=== PATIENT | male | born 1960 | race Hispanic/Latino ===

== ENCOUNTER 2018-11-22 15:35 | Emergency (ER) | payer BC ==
--- NOTE | 2018-11-22 17:57 | RAD REPORT ---
EXAM DESCRIPTION: RAD - Chest Pa And Lat (2 Views) - 11/22/2018 5:10 pm CLINICAL HISTORY: COUGH Chest pain. COMPARISON: No comparisons FINDINGS: The lungs appear hyperexpanded. Rounded opacity is seen projecting posteriorly on the late ral view superimposed on the spine. This may be related to bony sclerosis in the spine or a pulmonary infiltrate or mass. The heart is normal in size. Follow-up CT chest imaging would be recommended for further assessment.
[2018-11-22 18:06] LABS: Absolute Monocytes 1.1 K/uL (0.1-1.3); Absolute Neutrophil 4.3 K/uL (1.8-8.0); Basophils % 0.7 % (0-1.3); Eosinophils % 0.9 % (0-4.4); Hematocrit 44.9 % (39.6-49.0); Lymphocytes % 35.4 % (15.3-44.8); MPV 8.9 fL (7.6-11.3); Monocytes % 12.4 % (3.3-12.3); RBC Red Blood Cell Count 5.03 M/uL (4.33-5.43)
[2018-11-22 18:13] LABS: Protime INR 1.1
[2018-11-22 18:24] LABS: BUN Blood Urea Nitrogen 11 mg/dL (7-18); Bicarbonate 29 mmol/L (21-32); Glucose Level 259 mg/dL (74-106); NT PRO-BNP 25 pg/mL (<125); Potassium 3.8 mmol/L (3.5-5.1); Sodium Level 137 mmol/L (136-145); Troponin (Emerg Dept Use Only) < 0.02 ng/mL (0.0-0.045)
--- NOTE | 2018-11-22 18:40 | RAD REPORT ---
EXAM DESCRIPTION: CT - Thorax Wo Con CLINICAL HISTORY: Chest pain cough, shortness of breath COMPARISON: Chest Pa And Lat (2 Views) dated 11/22/2018 FINDINGS: 19 x 16 mm pulmonary lesion is seen in the left lower lobe posteriorly (image 35/60). The lesion appears at least partially solid with some ground-glass component. Elsewhere, the lungs are cl ear. No pleural thickening or pleural effusion. No pneumothorax. No axillary, mediastinal or hilar adenopathy. No concerning bony finding. Multiple gallstones are seen in the gallbladder. There is a vague low-den sity lesion in the posterior right lobe of the liver measuring 3.3 x 2.7 cm. This is incompletely ass essed on this CT chest study. All CT scans are performed using dose optimization technique as appropriate and may include automated exposure control or mA/KV adjustment according to patient size. IMPRESSION: 19 x 16 mm pulmonary lesion in the left lower lobe with solid and ground-glass component s.Neoplastic and nonneoplastic etiologies are possible and follow-up CT chest in 3 months or PET-CT i s recommended. Subtle hypodense lesion in the posterior right lobe of the liver (3.3 x 2.7 cm). Followup nonemergent MRI liver protocol is recommended. Cholelithiasis.
--- NOTE | 2018-11-22 18:49 | ER ---
Nurse's Notes [facility] Name: Luis Alberto Oliveira Age: 58 yrs Sex: Male : 1960 Arrival Date: 11/22/2018 Time: 15:37 Bed 28 Private MD: Diagnosis: Cough Presentation: 11/22 15:58 Presenting complaint: Patient states: Persistent cough x 2 weeks w/ clear phlegm, also ph reports SOB, denies fever N/V/D or pain. Transition of care: patient was not received from another setting of care. Onset of symptoms was November 22, 2018. Risk Assessment: Do you want to hurt yourself or someone else? Patient reports no desire to harm self or others. Initial Sepsis Screen: Does the patient meet any 2 criteria? No. Patient's initial sepsis screen is negative. Does the patient have a suspected source of infection? No. Patient's initial sepsis screen is negative. Care prior to arrival: None. 15:58 Method Of Arrival: Ambulatory 15:58 Acuity: CATRACHITO 3 ph Triage Assessment: 16:07 General: Appears in no apparent distress. uncomfortable. General: Behavior is calm, rv cooperative. Respiratory: Reports shortness of breath on exertion Onset: The symptoms/episode began/occurred gradually, the patient has mild shortness of breath. Historical: - Allergies: 16:00 No Known Allergies; ph - PMHx: 16:00 Sleep Apnea; Diabetes - IDDM; Hypertension; Hyperlipidemia; Hypothyroidism; ph - Immunization history:: Adult Immunizations up to date. - Social history:: Smoking status: Patient/guardian denies using tobacco. - Ebola Screening: : No symptoms or risks identified at this time. Screenin:06 Abuse screen: Denies threats or abuse. Denies injuries from another. Nutritional rv screening: No deficits noted. Tuberculosis screening: No symptoms or risk factors identified. Fall Risk None identified. Assessment: 16:05 General: Appears in no apparent distress. uncomfortable, Behavior is calm, cooperative. rv Pain: Denies pain. Neuro: Level of Consciousness is awake, alert, obeys commands, Oriented to person, place, time, situation. Cardiovascular: Patient's skin is warm and dry. Rhythm is regular. Respiratory: Airway is patent Respiratory effort is even, Breath sounds are clear bilaterally. GI: No signs and/or symptoms were reported involving the gastrointestinal system. : No signs and/or symptoms were reported regarding the genitourinary system. EENT: No signs and/or symptoms were reported regarding the EENT system. Derm: Skin is intact. Musculoskeletal: No signs and/or symptoms reported regarding the musculoskeletal system. 19:00 Reassessment: Patient appears in no apparent distress at this time. Patient and/or rv family updated on plan of care and expected duration. Pain level reassessed. Patient is alert, oriented x 3, equal unlabored respirations, skin warm/dry/pink. Vital Signs: 15:59 BP 147 / 72; Pulse 90; Resp 24; Temp 98.6; Pulse Ox 98% on R/A; Weight 199.58 kg; ph Height 5 ft. 8 in. (172.72 cm); 16:45 BP 137 / 76; Pulse 85; Resp 18; Pulse Ox 94% ; rv 18:00 BP 102 / 68; Pulse 85; Resp 18; Pulse Ox 97% ; rv 19:26 BP 110 / 81; Pulse 89; Resp 18; Temp 98.2; Pulse Ox 98% ; rv 15:59 Body Mass Index 66.90 (199.58 kg, 172.72 cm) ph ED Course: 15:37 Patient arrived in ED. tw3 15:50 Sean Overton, OCHOA is Primary Nurse. rv 15:53 Maritza Gorman FNP-C is [facility]. kb 15:53 Jose Guadalupe Watson MD is Attending Physician. kb 15:59 Triage completed. ph 16:00 Arm band placed on Patient placed in an exam room, on a stretcher, on pulse oximetry. ph 16:07 Patient has correct armband on for positive identification. Bed in low position. Call rv light in reach. Side rails up X 1. Pulse ox on. NIBP on. 17:05 Chest Pa And Lat (2 Views) XRAY In Process Unspecified. EDMS 17:50 Inserted saline lock: 20 gauge in right antecubital area, using aseptic technique. rv Blood collected. 18:[address] eh 18:22 CT completed. Patient tolerated procedure well. Patient moved back from CT. eh 18:23 CT Chest Wo Con In Process Unspecified. EDMS 19:26 No provider procedures requiring assistance completed. IV discontinued, intact, rv bleeding controlled, No redness/swelling at site. Pressure dressing applied. Administered Medications: No medications were administered Outcome: 18:49 Discharge ordered by . johnathan 19:27 Discharged to home ambulatory. rv 19:27 Condition: good 19:27 Discharge instructions given to patient, Instructed on discharge instructions, follow up and referral plans. medication usage, Demonstrated understanding of instructions, follow-up care, medications, Prescriptions given X 1. 19:27 Patient left the ED. rv Signatures: Dispatcher [employer] EDMaritza Oates, TAX ACCOUNTING ASSISTANT-C TAX ACCOUNTING ASSISTANT-Kadeem Rosa Patricia, RN RN ph Mathieu, Tia tw3 Sean Overton, RN RN rv Corrections: (The following items were deleted from the chart) 17:57 17:55 BP 94 / 61; Pulse 86bpm; Resp 19bpm; Pulse Ox 100%; Temp 99.9F; rv rv
--- NOTE | 2018-11-22 18:49 | EDPHYS ---
Physician Documentation [facility] Name: Luis Alberto Oliveira Age: 58 yrs Sex: Male : 1960 Arrival Date: 11/22/2018 Time: 15:37 Bed 28 Private MD: ED Physician Jose Guadalupe Watson HPI: 11/22 17:32 This 58 yrs old Male presents to ER via Ambulatory with complaints of Cough, kb Shortness Of Breath. 17:32 The patient or guardian reports cough, that is intermittent, described as moderate, kb with no sputum, difficulty breathing. Onset: The symptoms/episode began/occurred 2.5 week(s) ago. Severity of symptoms: At their worst the symptoms were moderate, in the emergency department the symptoms are unchanged. Modifying factors: The symptoms are alleviated by nothing, the symptoms are aggravated by exertion. Associated signs and symptoms: The patient has no apparent associated signs or symptoms. The patient has not experienced similar symptoms in the past. The patient has not recently seen a physician. Pt reports cough for 2.5 weeks and now having dyspnea on exertion. Historical: - Allergies: 16:00 No Known Allergies; ph - PMHx: 16:00 Sleep Apnea; Diabetes - IDDM; Hypertension; Hyperlipidemia; Hypothyroidism; ph - Immunization history:: Adult Immunizations up to date. - Social history:: Smoking status: Patient/guardian denies using tobacco. - Ebola Screening: : No symptoms or risks identified at this time. ROS: 17:31 Constitutional: Negative for fever, chills, and weight loss, ENT: Negative for injury, kb pain, and discharge, Neck: Negative for injury, pain, and swelling, Cardiovascular: Negative for chest pain, palpitations, and edema, Abdomen/GI: Negative for abdominal pain, nausea, vomiting, diarrhea, and constipation, Back: Negative for injury and pain, : Negative for injury, bleeding, discharge, and swelling, MS/Extremity: Negative for injury and deformity, Skin: Negative for injury, rash, and discoloration, Neuro: Negative for headache, weakness, numbness, tingling, and seizure. 17:31 Respiratory: Positive for cough, with no reported sputum, dyspnea on exertion. Exam: 17:32 Constitutional: This is a well developed, well nourished patient who is awake, alert, kb and in no acute distress. Head/Face: Normocephalic, atraumatic. ENT: Nares patent. No nasal discharge, no septal abnormalities noted. Tympanic membranes are normal and external auditory canals are clear. Oropharynx with no redness, swelling, or masses, exudates, or evidence of obstruction, uvula midline. Mucous membranes moist. Neck: Trachea midline, no thyromegaly or masses palpated, and no cervical lymphadenopathy. Supple, full range of motion without nuchal rigidity, or vertebral point tenderness. No Meningismus. Chest/axilla: Normal chest wall appearance and motion. Nontender with no deformity. No lesions are appreciated. Cardiovascular: Regular rate and rhythm with a normal S1 and S2. No gallops, murmurs, or rubs. Normal PMI, no JVD. No pulse deficits. Respiratory: Lungs have equal breath sounds bilaterally, clear to auscultation and percussion. No rales, rhonchi or wheezes noted. No increased work of breathing, no retractions or nasal flaring. Abdomen/GI: Soft, non-tender, with normal bowel sounds. No distension or tympany. No guarding or rebound. No evidence of tenderness throughout. Skin: Warm, dry with normal turgor. Normal color with no rashes, no lesions, and no evidence of cellulitis. MS/ Extremity: Pulses equal, no cyanosis. Neurovascular intact. Full, normal range of motion. Neuro: Awake and alert, GCS 15, oriented to person, place, time, and situation. Cranial nerves II-XII grossly intact. Motor strength 5/5 in all extremities. Sensory grossly intact. Cerebellar exam normal. Normal gait. 18:37 ECG was reviewed by the Attending Physician. kb Vital Signs: 15:59 BP 147 / 72; Pulse 90; Resp 24; Temp 98.6; Pulse Ox 98% on R/A; Weight 199.58 kg; ph Height 5 ft. 8 in. (172.72 cm); 16:45 BP 137 / 76; Pulse 85; Resp 18; Pulse Ox 94% ; rv 18:00 BP 102 / 68; Pulse 85; Resp 18; Pulse Ox 97% ; rv 19:26 BP 110 / 81; Pulse 89; Resp 18; Temp 98.2; Pulse Ox 98% ; rv 15:59 Body Mass Index 66.90 (199.58 kg, 172.72 cm) ph MDM: 15:53 Patient medically screened. kb 17:30 Data reviewed: vital signs, nurses notes. Data interpreted: Pulse oximetry: on room air kb is 98 %. Interpretation: normal. ED course: Discussed pt with Dr Watson. Labs and EKG ordered.. 18:03 ED course: Radiologist recommended CT chest for further evaluation. . kb 18:38 Counseling: I had a detailed discussion with the patient and/or guardian regarding: the historical points, exam findings, and any diagnostic results supporting the discharge/admit diagnosis, lab results, radiology results, the need for outpatient follow up, a family practitioner, to return to the emergency department if symptoms worsen or persist or if there are any questions or concerns that arise at home. 18:48 Special discussion: I discussed with the patient the need to follow-up with the PCP/specialist for the noted incidental finding on X-ray/CT scanning. ED course: Pt educated on findings and need for follow up with pulmonology/PCP for repeat CT in 3 months. VErbal understanding received. . 11/22 17:29 Order name: Troponin (emerg Dept Use Only) 11/22 17:29 Order name: Magnesium; Complete Time: 18:27 kb 11/22 17:29 Order name: Basic Metabolic Panel 11/22 17:29 Order name: CBC with Diff; Complete Time: 18:19 kb 11/22 17:29 Order name: NT PRO-BNP; Complete Time: 18:27 kb 11/22 17:29 Order name: PT-INR; Complete Time: 18:19 kb 11/22 15:57 Order name: Chest Pa And Lat (2 Views) XRAY; Complete Time: 18:01 kb 11/22 17:29 Order name: EKG; Complete Time: 17:29 kb 11/22 17:29 Order name: EKG - Nurse/Tech; Complete Time: 17:53 kb 11/22 17:29 Order name: Cardiac monitoring; Complete Time: 17:54 kb 11/22 17:29 Order name: IV Saline Lock; Complete Time: 17:54 kb 11/22 17:30 Order name: Troponin (Emerg Dept Use Only); Complete Time: 18:27 EDAR 11/22 17:30 Order name: Basic Metabolic Panel; Complete Time: 18:27 EDAR 11/22 18:02 Order name: CT Chest Wo Con; Complete Time: 18:45 kb 11/22 17:29 Order name: Labs collected and sent; Complete Time: 17:54 kb 11/22 17:29 Order name: O2 Per Protocol; Complete Time: 17:53 kb 11/22 17:29 Order name: O2 Sat Monitoring; Complete Time: 17:53 kb EC:37 Rate is 88 beats/min. Rhythm is regular. Left axis deviation noted. OR interval is kb normal at 148 msec. QRS interval is normal at 106 msec. QT interval is normal at 362 msec. Interpreted by me. Reviewed by me. Administered Medications: No medications were administered Disposition: 11/22/18 18:49 Discharged to Home. Impression: Cough. - Condition is Stable. - Discharge Instructions: Cough, Adult, [id number]. - Prescriptions for Tessalon Perles 100 mg Oral Capsule - take 1 capsule by ORAL route every 8 hours As needed; 15 capsule. - Medication Reconciliation Form, Thank You Letter, Antibiotic Education, Prescription Opioid Use form. - Follow up: Emergency Department; When: As needed; Reason: Worsening of condition. Follow up: Private Physician; When: 2 - 3 days; Reason: Recheck today's complaints, Continuance of care, Re-evaluation by your physician. Addendum: 11/26/2018 22:48 Co-signature as Attending Physician, Jose Guadalupe Watson MD. g s Signatures: Dispatcher [employer] EDMS Maritza Gorman, SAND MILL OPERATOR-C SAND MILL OPERATOR-Ckb Yudith Harris RN RN ph Starr, Gregory, MD MD gs Vicente, Ronaldo RN RN rv Corrections: (The following items were deleted from the chart) 11/22 19:27 18:49 11/22/2018 18:49 Discharged to Home. Impression: Cough. Condition is Stable. rv Forms are Medication Reconciliation Form, Thank You Letter, Antibiotic Education, Prescription Opioid Use. Follow up: Emergency Department; When: As needed; Reason: Worsening of condition. Follow up: Private Physician; When: 2 - 3 days; Reason: Recheck today's complaints, Continuance of care, Re-evaluation by your physician. kb
[2018-11-22 19:43] VITALS: BP 110/81; TEMP 98.2; O2SAT 98
--- NOTE | 2018-11-23 12:52 | EKG ---
Test Date: 2018-11-22 Test Time: 17:44:44 Ticket Attendant: SAMANTHAT MEASUREMENT RESULTS: Intervals: Rate: 88 NC: 148 QRSD: 106 QT: 362 QTc: 438 Allen: P: 48 NC: 148 QRS: -57 T: 24 INTERPRETIVE STATEMENTS: Normal sinus rhythm Left axis deviation Pulmonary disease pattern Minimal voltage criteria for LVH, may be normal variant Abnormal ECG No previous ECG available for comparison Electronically Signed On 11-23-18 12:50:49 CDT by Kelvin Angel
== END 2018-11-22 19:27 | disposition home or self-care (01) ==
LOC: ER 15:35
DX: R05 Cough (principal); I10 Essential (primary) hypertension
CPT/HCPCS: 36415; 71046; 71250; 80048; 83735; 83880; 84484; 85025; 85610; 93005; 99284

== ENCOUNTER 2019-02-22 18:31 | Observation (INO) | payer BC ==
[2019-02-22] MEDS ORDERED: NA CHLORIDE 0.9% 2,000 ML ONE (19:48)
[2019-02-22] MEDS ORDERED: AZITHROMYCIN 500 MG INJ IVPB ONE (19:48)
[2019-02-22] MEDS ORDERED: ACETAMINOPHEN 500 MG TAB ONE (19:48)
[2019-02-22] MEDS ORDERED: CEFTRIAXONE/SWI 1gm 2 GM/20 ML SYR ONE (19:48)
[2019-02-22] MEDS ORDERED: NA CHLORIDE 0.9% 250 ML ONE (19:49)
[2019-02-22 20:20] LABS: MPV 7.8 fL (7.6-11.3)
[2019-02-22 20:25] LABS: Absolute Lymphocytes (CBC) 3.5 K/uL (0.7-4.9); Basophils % 0.3 % (0-1.3); Hematocrit 35.1 % (39.6-49.0); Lymphocytes % 30.1 % (15.3-44.8); Protime INR 1.23
--- NOTE | 2019-02-22 20:33 | ER ---
Nurse's Notes [facility] Name: Luis Alberto Oliveira Age: 58 yrs Sex: Male : 1960 Arrival Date: 02/22/2019 Time: 18:34 Bed 13 Private MD: Antoni Galvan R Diagnosis: Fever, unspecified;Dyspnea;Dyspnea, unspecified;Obesity, unspecified;Lymphedema, not elsewhere classified;Hypokalemia;Tachycardia, unspecified;Hypoxemia;Type 1 diabetes mellitus Presentation: 02/22 18:50 Presenting complaint: Patient states: "I've been short of breath for a while but today aa5 I started running a fever". Pt also c/o RUQ pain that began 2 weeks ago. Reports cough and congestion. Transition of care: patient was not received from another setting of care. Onset of symptoms was 2018. Risk Assessment: Do you want to hurt yourself or someone else? Patient reports no desire to harm self or others. Initial Sepsis Screen: Does the patient meet any 2 criteria? RR > 20 per min. HR > 90 bpm. Yes Does the patient have a suspected source of infection? Yes: Other: cough/SOB. Care prior to arrival: None. 18:50 Method Of Arrival: Ambulatory aa5 18:50 Acuity: CATRACHITO 3 aa5 Triage Assessment: 18:54 General: Appears in no apparent distress. uncomfortable, ill, Behavior is cooperative, bp appropriate for age, anxious. Pain: Complains of pain in right upper quadrant. EENT: No deficits noted. Neuro: No deficits noted. Cardiovascular: No deficits noted. Respiratory: Reports shortness of breath Onset: The symptoms/episode began/occurred 2 DAYS, the patient has mild shortness of breath. GI: Reports upper abdominal pain. : No signs and/or symptoms were reported regarding the genitourinary system. Derm: No deficits noted. Musculoskeletal: No deficits noted. Historical: - Allergies: 18:52 No Known Allergies; aa5 - PMHx: 18:52 Diabetes - IDDM; Hyperlipidemia; Hypertension; Hypothyroidism; Sleep Apnea; aa5 - PSHx: 18:52 Craniotomy; aa5 - Immunization history:: Flu vaccine is up to date. - Social history:: Smoking status: Patient/guardian denies using tobacco. - Ebola Screening: : No symptoms or risks identified at this time. - Family history:: not pertinent. Screenin:57 Abuse screen: Denies threats or abuse. Denies injuries from another. Nutritional bp screening: No deficits noted. Tuberculosis screening: No symptoms or risk factors identified. Fall Risk None identified. Assessment: 18:56 General: SEE TRIAGE NOTE. Cardiovascular: Rhythm is sinus tachycardia. Respiratory: bp Airway is patent Respiratory effort is even, unlabored, Breath sounds are clear bilaterally. 19:03 General: Appears in no apparent distress. uncomfortable, well groomed, well nourished, jd3 Behavior is calm, cooperative, appropriate for age. Pain: Complains of pain in abdomen Quality of pain is described as crampy, dull. Neuro: Level of Consciousness is awake, alert, obeys commands, Oriented to person, place, time, situation. Cardiovascular: Heart tones S1 S2 present Capillary refill < 3 seconds Patient's skin is warm and dry. Respiratory: Reports shortness of breath Airway is patent Respiratory effort is even, unlabored, Respiratory pattern is regular, symmetrical, Breath sounds are clear bilaterally. Denies cough, labored breathing. GI: Abdomen is round non-distended, obese, Bowel sounds present X 4 quads. Abd is soft and non tender X 4 quads. Reports upper abdominal pain, Patient currently denies diarrhea, nausea, vomiting. : No signs and/or symptoms were reported regarding the genitourinary system. EENT: No signs and/or symptoms were reported regarding the EENT system. Derm: Skin is intact, Skin is dry, Skin is normal, Skin temperature is warm. Musculoskeletal: Circulation, motion, and sensation intact. Range of motion: intact in all extremities. 20:22 Reassessment: Patient appears in no apparent distress at this time. No changes from jd3 previously documented assessment. Patient and/or family updated on plan of care and expected duration. Pain level reassessed. Patient is alert, oriented x 3, equal unlabored respirations, skin warm/dry/pink. 21:13 Reassessment: Patient appears in no apparent distress at this time. No changes from jd3 previously documented assessment. Patient and/or family updated on plan of care and expected duration. Pain level reassessed. Patient is alert, oriented x 3, equal unlabored respirations, skin warm/dry/pink. awaiting admission orders. 22:21 Reassessment: Patient appears in no apparent distress at this time. Patient and/or jd3 family updated on plan of care and expected duration. Pain level reassessed. Patient is alert, oriented x 3, equal unlabored respirations, skin warm/dry/pink. resting in bed with even and unlabored respirations. admitting doctor at bedside. 23:27 Reassessment: Patient appears in no apparent distress at this time. Patient and/or jd3 family updated on plan of care and expected duration. Pain level reassessed. Patient is alert, oriented x 3, equal unlabored respirations, skin warm/dry/pink. awaiting admission orders. 02/23 00:11 Reassessment: Patient appears in no apparent distress at this time. No changes from jd3 previously documented assessment. Patient and/or family updated on plan of care and expected duration. Pain level reassessed. Patient is alert, oriented x 3, equal unlabored respirations, skin warm/dry/pink. Patient states feeling better. 01:18 Reassessment: Patient appears in no apparent distress at this time. No changes from jd3 previously documented assessment. Patient and/or family updated on plan of care and expected duration. Pain level reassessed. Patient is alert, oriented x 3, equal unlabored respirations, skin warm/dry/pink. Vital Signs: 02/22 18:52 BP 109 / 59; Pulse 110; Resp 22 S; Temp 100.3(O); Pulse Ox 96% on R/A; Pain 0/10; aa5 18:54 Weight 197.04 kg (M); aa5 20:13 BP 126 / 65; Pulse 94; Resp 24 S; Pulse Ox 97% on R/A; jd3 21:13 BP 116 / 58; Pulse 93; Resp 19 S; Pulse Ox 97% on R/A; jd3 22:22 BP 125 / 68; Pulse 91; Resp 18 S; Pulse Ox 96% on R/A; jd3 23:27 BP 115 / 62; Pulse 72; Resp 26 S; Temp 98.7(O); Pulse Ox 96% on R/A; jd3 02/23 00:11 BP 135 / 73; Pulse 69; Resp 19 S; Pulse Ox 94% on R/A; jd3 01:17 BP 136 / 70; Pulse 70; Resp 22 S; Pulse Ox 97% on R/A; jd3 ED Course: 02/22 18:34 Patient arrived in ED. mr 18:35 Antoni Galvan MD is Private Physician. mr 18:50 Arm band placed on. aa5 18:51 Triage completed. aa5 18:54 Juan Manuel Dolan, RN is Primary Nurse. bp 18:57 Patient has correct armband on for positive identification. Bed in low position. Call bp light in reach. Side rails up X2. 19:06 Primary Nurse role handed off by Juan Manuel Dolan, RN jd3 19:06 Jh Shay, OCHOA is Primary Nurse. jd3 19:17 Michael Wolf MD is Attending Physician. marleni 20:14 Inserted saline lock: 20 gauge in right antecubital area, using aseptic technique. oe Blood collected. 20:23 Chest Pa And Lat (2 Views) XRAY In Process Unspecified. EDMS 20:30 Rui Wilkins DO is Hospitalizing Provider. marleni 20:43 US Extremity Venous W Compression Kayden In Process Unspecified. EDMS 21:[address] via stretcher. sj 21:12 CT completed. Patient tolerated procedure well. Patient moved back from CT. sj 21:28 CT Chest For PE Angio In Process Unspecified. EDMS 02/23 00:51 No provider procedures requiring assistance completed. Patient admitted, IV remains in ak1 place. Administered Medications: Discontinued: NS 0.9% 1000 ml IV at 125 ml/hr continuous 02/22 19:54 Drug: Tylenol 1000 mg Route: PO; jd3 20:50 Follow up: Response: No adverse reaction jd3 20:11 Drug: NS 0.9% 1000 ml Route: IV; Rate: 1 bolus; Site: right antecubital; jd3 23:36 Follow up: Response: No adverse reaction; IV Status: Completed infusion; IV Intake: jd3 1000ml 20:12 Drug: NS 0.9% 1000 ml Route: IV; Rate: 125 ml/hr; Site: right antecubital; jd3 21:50 Follow up: Response: No adverse reaction; IV Status: Order to discontinue infusion jd3 20:15 Drug: Rocephin 2 grams Route: IV; Rate: per protocol; Site: right antecubital; jd3 20:25 Follow up: Response: No adverse reaction; IV Intake: 20ml jd3 20:25 Follow up: Response: No adverse reaction; IV Status: Completed infusion; IV Intake: [id number] 20:50 Drug: Zithromax 500 mg Route: IVPB; Infused Over: 1 hrs; Site: right antecubital; jd3 23:36 Follow up: Response: No adverse reaction; IV Status: Completed infusion; IV Intake: jd3 250ml 21:49 Drug: Potassium Effervescent Tablet 50 mEq Route: PO; jd3 23:37 Follow up: Response: No adverse reaction jd3 21:51 Drug: NS 0.9% with KCl 20 mEq/L 1000 ml Route: IV; Rate: 125 ml/hr; Site: right jd3 antecubital; 02/23 00:46 Follow up: IV Status: Infusion continued upon admission ak1 Intake: 02/22 20:25 IV: 20ml; Total: 20ml. jd3 20:25 IV: 20ml; Total: 40ml. jd3 23:36 IV: 1000ml; Total: 1040ml. jd3 23:36 IV: 250ml; Total: 1290ml. jd3 Outcome: 20:31 Decision to Hospitalize by Provider. marleni 02/23 00:51 Admitted to Med/surg accompanied by tech, via stretcher, room 422, with chart, Report ak1 called to shaina Condition: good Instructed on the need for admit. 01:29 Patient left the ED. jd3 Signatures: Dispatcher [employer] EDMS Michael Wolf MD MD cha Rivera, Mary mr Nguyen SerenityRadha Rosen RN RN jr5 Silvia London RN RN ak1 Rian Mckeon Jonathon, RN RN jd3 Juan Manuel Dolan, OCHOA RN bp Corrections: (The following items were deleted from the chart) 02/22 21:16 21:13 BP 116 / 58; Pulse 54bpm; Resp 19bpm; Spontaneous; Pulse Ox 97% RA; jd3 jd3
--- NOTE | 2019-02-22 20:33 | EDPHYS ---
Physician Documentation [facility] Name: Luis Alberto Oliveira Age: 58 yrs Sex: Male : 1960 Arrival Date: 02/22/2019 Time: 18:34 Bed 13 Private MD: Antoni Galvan R ED Physician Michael Wolf HPI: 02/22 19:42 This 58 yrs old Male presents to ER via Ambulatory with complaints of Fever, marleni Shortness Of Breath. 19:42 The patient reports fever, that was measured at 100 degrees Fahrenheit. Onset: The marleni symptoms/episode began/occurred 1 week(s) ago. Modifying factors: there are no obvious modifying factors. 19:43 Associated signs and symptoms: Pertinent positives: chills, cough, runny nose, sinus marleni congestion, shortness of breath. Severity of symptoms: At their worst the symptoms were moderate in the emergency department the symptoms are unchanged. The patient has experienced similar episodes in the past, a few times. Historical: - Allergies: 18:52 No Known Allergies; aa5 - PMHx: 18:52 Diabetes - IDDM; Hyperlipidemia; Hypertension; Hypothyroidism; Sleep Apnea; aa5 - PSHx: 18:52 Craniotomy; aa5 - Immunization history:: Flu vaccine is up to date. - Social history:: Smoking status: Patient/guardian denies using tobacco. - Ebola Screening: : No symptoms or risks identified at this time. - Family history:: not pertinent. ROS: 19:43 Eyes: Negative for injury, pain, redness, and discharge, ENT: Negative for injury, marleni pain, and discharge, Neck: Negative for injury, pain, and swelling, Abdomen/GI: Negative for abdominal pain, nausea, vomiting, diarrhea, and constipation, Back: Negative for injury and pain, : Negative for injury, bleeding, discharge, and swelling, Skin: Negative for injury, rash, and discoloration, Neuro: Negative for headache, weakness, numbness, tingling, and seizure, Psych: Negative for depression, anxiety, suicide ideation, homicidal ideation, and hallucinations, Allergy/Immunology: Negative for hives, rash, and allergies, Endocrine: Negative for neck swelling, polydipsia, polyuria, polyphagia, and marked weight changes, Hematologic/Lymphatic: Negative for swollen nodes, abnormal bleeding, and unusual bruising. 19:43 Cardiovascular: Positive for palpitations. 19:43 Respiratory: Positive for cough, shortness of breath. 19:43 MS/extremity: Positive for swelling, tenderness. Exam: 19:45 Head/Face: Normocephalic, atraumatic. Eyes: Pupils equal round and reactive to light, marleni extra-ocular motions intact. Lids and lashes normal. Conjunctiva and sclera are non-icteric and not injected. Cornea within normal limits. Periorbital areas with no swelling, redness, or edema. ENT: Nares patent. No nasal discharge, no septal abnormalities noted. Tympanic membranes are normal and external auditory canals are clear. Oropharynx with no redness, swelling, or masses, exudates, or evidence of obstruction, uvula midline. Mucous membranes moist. Neck: Trachea midline, no thyromegaly or masses palpated, and no cervical lymphadenopathy. Supple, full range of motion without nuchal rigidity, or vertebral point tenderness. No Meningismus. Chest/axilla: Normal chest wall appearance and motion. Nontender with no deformity. No lesions are appreciated. Abdomen/GI: Soft, non-tender, with normal bowel sounds. No distension or tympany. No guarding or rebound. No evidence of tenderness throughout. Back: No spinal tenderness. No costovertebral tenderness. Full range of motion. Male : Normal genitalia with no discharge or lesions. Skin: Warm, dry with normal turgor. Normal color with no rashes, no lesions, and no evidence of cellulitis. Neuro: Awake and alert, GCS 15, oriented to person, place, time, and situation. Cranial nerves II-XII grossly intact. Motor strength 5/5 in all extremities. Sensory grossly intact. Cerebellar exam normal. Normal gait. Psych: Awake, alert, with orientation to person, place and time. Behavior, mood, and affect are within normal limits. 19:45 Constitutional: The patient appears febrile. 19:45 Cardiovascular: Rate: tachycardic, Rhythm: regular, Pulses: Pulses are 4+ in bilateral radial, brachial, femoral, popliteal, posterior tibial and and dorsalis pedis arteries.. Heart sounds: normal, Edema: 2+ edema to level of left midcalf and right midcalf, JVD: is not appreciated. Vital Signs: 18:52 BP 109 / 59; Pulse 110; Resp 22 S; Temp 100.3(O); Pulse Ox 96% on R/A; Pain 0/10; aa5 18:54 Weight 197.04 kg (M); aa5 20:13 BP 126 / 65; Pulse 94; Resp 24 S; Pulse Ox 97% on R/A; jd3 21:13 BP 116 / 58; Pulse 93; Resp 19 S; Pulse Ox 97% on R/A; jd3 22:22 BP 125 / 68; Pulse 91; Resp 18 S; Pulse Ox 96% on R/A; jd3 23:27 BP 115 / 62; Pulse 72; Resp 26 S; Temp 98.7(O); Pulse Ox 96% on R/A; jd3 08 00:11 BP 135 / 73; Pulse 69; Resp 19 S; Pulse Ox 94% on R/A; jd3 01:17 BP 136 / 70; Pulse 70; Resp 22 S; Pulse Ox 97% on R/A; jd3 MDM: 02/22 19:17 Patient medically screened. [facility] 19:45 Data reviewed: vital signs, nurses notes, lab test result(s), EKG, radiologic studies, marleni doppler, plain films. 02/22 19:42 Order name: Basic Metabolic Panel [facility] 02/22 19:42 Order name: CBC with Diff [facility] 02/22 19:42 Order name: LFT's; Complete Time: 21:51 [facility] 02/22 19:42 Order name: Magnesium; Complete Time: 21:51 [facility] 02/22 19:42 Order name: NT PRO-BNP; Complete Time: 21:51 [facility] 02/22 19:42 Order name: PT-INR; Complete Time: 21:32 [facility] 02/22 19:42 Order name: Troponin (emerg Dept Use Only); Complete Time: 21:51 [facility] 02/22 19:42 Order name: Blood Culture Adult (2) [facility] 02/22 19:42 Order name: Procalcitonin; Complete Time: 21:32 [facility] 02/22 19:42 Order name: Lactate; Complete Time: 21:32 [facility] 02/22 19:42 Order name: Flu; Complete Time: 21:32 [facility] 02/22 19:42 Order name: ABG; Complete Time: 23:14 [facility] 02/22 19:44 Order name: Basic Metabolic Panel; Complete Time: 21:51 EDMS 08/19 19:44 Order name: CBC with Automated Diff; Complete Time: 21:32 [facility]PA 02/22 19:51 Order name: Lipase; Complete Time: 21:51 [facility] 02/22 20:37 Order name: Urine Microscopic Only [facility] 02/22 20:37 Order name: Urine Culture [facility] 02/22 21:39 Order name: Phosphorus; Complete Time: 21:51 EDMS 02/23 01:20 Order name: ABG Arterial Blood Gas [facility] 02/23 01:21 Order name: NT PRO-BNP EDMS 02/23 01:21 Order name: Thyroid Stimulating Hormone EDMS 02/23 01:21 Order name: Basic Metabolic Panel [facility]PA 02/23 01:21 Order name: Basic Metabolic Panel [facility] 02/23 01:21 Order name: CBC with Automated Diff EDMS 02/23 01:21 Order name: CBC with Automated Diff EDMS 02/23 01:21 Order name: Lipid Profile [facility] 02/23 01:21 Order name: Lipid Profile [facility] 02/23 01:21 Order name: Troponin I [facility] 02/22 19:42 Order name: EKG; Complete Time: 19:44 [facility] 02/22 19:42 Order name: Cardiac monitoring; Complete Time: 20:12 [facility] 02/22 19:42 Order name: EKG - Nurse/Tech; Complete Time: 20:12 [facility] 02/22 19:42 Order name: IV Saline Lock; Complete Time: 20:12 [facility] 02/22 19:42 Order name: Labs collected and sent; Complete Time: 20:12 [facility] 02/22 19:42 Order name: O2 Per Protocol; Complete Time: 20:12 [facility] 02/22 19:42 Order name: O2 Sat Monitoring; Complete Time: 20:13 [facility] 02/22 19:42 Order name: Chest Pa And Lat (2 Views) XRAY; Complete Time: 21:32 [facility] 02/22 19:42 Order name: US Extremity Venous W Compression Kayden; Complete Time: 21:32 [facility] 02/22 20:32 Order name: CT Chest For PE Angio [facility] 02/22 20:37 Order name: Urine Dipstick-Ancillary (obtain specimen); Complete Time: 01:27 [facility] 02/23 01:22 Order name: Troponin I [facility] 02/23 01:22 Order name: Troponin I [facility] 02/23 01:22 Order name: Troponin I EDMS 02/23 01:27 Order name: Urine Dipstick--Ancillary (enter results) cm6 Administered Medications: Discontinued: NS 0.9% 1000 ml IV at 125 ml/hr continuous 19:54 Drug: Tylenol 1000 mg Route: PO; jd3 20:50 Follow up: Response: No adverse reaction jd3 20:11 Drug: NS 0.9% 1000 ml Route: IV; Rate: 1 bolus; Site: right antecubital; jd3 23:36 Follow up: Response: No adverse reaction; IV Status: Completed infusion; IV Intake: jd3 1000ml 20:12 Drug: NS 0.9% 1000 ml Route: IV; Rate: 125 ml/hr; Site: right antecubital; jd3 21:50 Follow up: Response: No adverse reaction; IV Status: Order to discontinue infusion jd3 20:15 Drug: Rocephin 2 grams Route: IV; Rate: per protocol; Site: right antecubital; jd3 20:25 Follow up: Response: No adverse reaction; IV Intake: 20ml jd3 20:25 Follow up: Response: No adverse reaction; IV Status: Completed infusion; IV Intake: [id number] 20:50 Drug: Zithromax 500 mg Route: IVPB; Infused Over: 1 hrs; Site: right antecubital; jd3 23:36 Follow up: Response: No adverse reaction; IV Status: Completed infusion; IV Intake: jd3 250ml 21:49 Drug: Potassium Effervescent Tablet 50 mEq Route: PO; jd3 23:37 Follow up: Response: No adverse reaction jd3 21:51 Drug: NS 0.9% with KCl 20 mEq/L 1000 ml Route: IV; Rate: 125 ml/hr; Site: right [facility] antecubital; 02/23 00:46 Follow up: IV Status: Infusion continued upon admission ak1 Disposition: 02/22/19 20:31 Hospitalization ordered by Rui Wilkins for Inpatient Admission. Preliminary diagnosis are Fever, unspecified, Dyspnea, Dyspnea, unspecified, Obesity, unspecified, Lymphedema, not elsewhere classified, Hypokalemia, Tachycardia, unspecified, Hypoxemia, Type 1 diabetes mellitus. - Bed requested for Telemetry/MedSurg (Inpatient). - Status is Inpatient Admission. jd3 - Condition is Stable. - Problem is new. - Symptoms have improved. UTI on Admission? No Signatures: Dispatcher [employer] [facility] Michael Wolf MD MD cha Calderon, Audri, RN RN jr5 Martha Mcgrath mt, Jonathon, RN RN jd3 Surya, Silvia RN ak1 Corrections: (The following items were deleted from the chart) 02/22 19:51 19:44 LIPASE+C.LAB.BRZ ordered. [facility] 20:23 19:44 Chest Single View+RAD.RAD.BRZ ordered. [facility] 21:34 20:31 Hospitalization Ordered by Rui Wilkins DO for Inpatient Admission. Preliminary marleni diagnosis is Fever, unspecified; Dyspnea; Dyspnea, unspecified; Obesity, unspecified; Lymphedema, not elsewhere classified. Bed requested for Telemetry/MedSurg (Inpatient). Status is Inpatient Admission. Condition is Stable. Problem is new. Symptoms have improved. UTI on Admission? No. marleni 21:34 21:34 02/22/2019 20:31 Hospitalization Ordered by RuiZain EASON for Inpatient marleni Admission. Preliminary diagnosis is Fever, unspecified; Dyspnea; Dyspnea, unspecified; Obesity, unspecified; Lymphedema, not elsewhere classified; Hypokalemia. Bed requested for Telemetry/MedSurg (Inpatient). Status is Inpatient Admission. Condition is Stable. Problem is new. Symptoms have improved. UTI on Admission? No. marleni 21:39 21:34 PHOSPHORUS+C.LAB.BRZ ordered. [facility] 21:52 21:34 02/22/2019 20:31 Hospitalization Ordered by Rui Claudette EASON for Inpatient marleni Admission. Preliminary diagnosis is Fever, unspecified; Dyspnea; Dyspnea, unspecified; Obesity, unspecified; Lymphedema, not elsewhere classified; Hypokalemia; Tachycardia, unspecified. Bed requested for Telemetry/MedSurg (Inpatient). Status is Inpatient Admission. Condition is Stable. Problem is new. Symptoms have improved. UTI on Admission? No. marleni 23:16 21:52 02/22/2019 20:31 Hospitalization Ordered by RuiZain EASON for Inpatient marleni Admission. Preliminary diagnosis is Fever, unspecified; Dyspnea; Dyspnea, unspecified; Obesity, unspecified; Lymphedema, not elsewhere classified; Hypokalemia; Tachycardia, unspecified; Hypoxemia. Bed requested for Telemetry/MedSurg (Inpatient). Status is Inpatient Admission. Condition is Stable. Problem is new. Symptoms have improved. UTI on Admission? No. marleni 02/23 00:38 02/22 23:16 02/22/2019 20:31 Hospitalization Ordered by Rui Wilkins DO for Inpatient mt Admission. Preliminary diagnosis is Fever, unspecified; Dyspnea; Dyspnea, unspecified; Obesity, unspecified; Lymphedema, not elsewhere classified; Hypokalemia; Tachycardia, unspecified; Hypoxemia; Type 1 diabetes mellitus. Bed requested for Telemetry/MedSurg (Inpatient). Status is Inpatient Admission. Condition is Stable. Problem is new. Symptoms have improved. UTI on Admission? No. marleni 02/23 01:29 00:38 02/22/2019 20:31 Hospitalization Ordered by Rui Wilkins DO for Inpatient jd3 Admission. Preliminary diagnosis is Fever, unspecified; Dyspnea; Dyspnea, unspecified; Obesity, unspecified; Lymphedema, not elsewhere classified; Hypokalemia; Tachycardia, unspecified; Hypoxemia; Type 1 diabetes mellitus. Bed requested for Telemetry/MedSurg (Inpatient). Status is Inpatient Admission. Condition is Stable. Problem is new. Symptoms have improved. UTI on Admission? No. mt
--- NOTE | 2019-02-22 20:36 | RAD REPORT ---
EXAM DESCRIPTION: RAD - Chest Pa And Lat (2 Views) - 02/22/2019 8:23 pm CLINICAL HISTORY: COUGH Chest pain. COMPARISON: Chest Pa And Lat (2 Views) dated 11/22/2018 FINDINGS: Linear subsegmental atelectasis is present in the right lung base. The lungs are otherwise clear. The heart is normal in size. No displaced fractures. IMPRESSION: Linear atelectasis in the right lung base.
[2019-02-22 20:43] LABS: ALT/SGPT 34 U/L (12-78); AST/SGOT 89 U/L (15-37); Albumin 2.6 g/dL (3.4-5.0); Alkaline Phosphatase 171 U/L (45-117); BUN Blood Urea Nitrogen 11 mg/dL (7-18); Bicarbonate 28 mmol/L (21-32); Bilirubin Direct 0.2 mg/dL (0-0.2); Bilirubin Total 0.6 mg/dL (0.2-1.0); Glucose Level 219 mg/dL (74-106); Lipase 95 U/L (73-393); Magnesium 1.9 mg/dL (1.8-2.4); NT PRO-BNP 93 pg/mL (<125); Protein, Total 7.1 g/dL (6.4-8.2); Sodium Level 139 mmol/L (136-145); Troponin (Emerg Dept Use Only) < 0.02 ng/mL (0.0-0.045)
--- NOTE | 2019-02-22 20:52 | RAD REPORT ---
EXAM DESCRIPTION: US - Extrem Venous W Compress Kayden - 02/22/2019 8:41 pm CLINICAL HISTORY: PAIN Bilateral leg edema and swelling. COMPARISON: <Comparisons> TECHNIQUE: Real-time sonographic interrogation of the left and right lower extremity deep venous sys tems was performed. FINDINGS: Normal compressibility, flow augmentation, phasic flow and spontaneous flow is identified in both the left and right lower extremity deep venous systems. IMPRESSION: No sonographic evidence of left or right lower extremity deep venous thrombosis.
[2019-02-22] MEDS ORDERED: POTASSIUM 25 MEQ EFFERV TAB ONE (21:41)
[2019-02-22] MEDS ORDERED: NS KCL 20MEQ 1,000 ML IV ONE (21:41)
[2019-02-22 21:43] LABS: Arterial Blood Carboxyhemoglob 1.8 % (0-1.5); Blood Gas Oxyhemoglobin 90.3 % (94-97); Blood O2 Saturation 92.2 % (92-98.5)
[2019-02-23] MEDS ORDERED: ACETAMINOPHEN 500 MG TAB PO PRN (00:20)
[2019-02-23] MEDS ORDERED: ALBUTEROL 2.5 MG/3 ML NEB SOL NEB PRN (00:20)
--- NOTE | 2019-02-23 00:58 | P.HP ---
Certification for Inpatient With expected LOS: <2 Midnights Patient will require the following post-hospital care: None Practitioner: I am a practitioner with admitting privileges, knowledge of patient current condition, hospital course, and medical plan of care. Services: Services provided to patient in accordance with Admission requirements found in Title 42 Section 412.3 of the Code of Federal Regulations Patient History Date of Service: 02/23/19 Reason for admission: Shortness of breath History of Present Illness: 58-year-old morbidly obese male with a history of diabetes mellitus type 2, obstructive sleep apnea, bilateral lower extremity lymphedema, hypertension presents to the emergency department with a complaint of shortness of breath of 2 days duration. Patient also reports fever and chills of onset this morning. He reports his symptoms were preceded by a upper respiratory symptoms including nasal congestion and runny nose. He reports cough but no wheeze. He states that he has been compliant with his CPAP. In the ED, mild leukocytosis noted, patient noted to be afebrile, chest x-ray demonstrated mild streak of atelectasis. Followup CTA thorax is negative for pulmonary embolism and no pneumonia. Patient saturating well on room air. He is observed to be short of breath. No wheezing. Acute infective bronchitis is suspected. Patient is placed on observation for further management. Allergies No Known Allergies Allergy (Verified 02/23/19 03:01) Home medications list reviewed: Yes Home Medications: Levothyroxine [Synthroid] 100 mcg PO [id number] 03/26/17 Lovastatin 20 mg PO DAILY 03/26/17 Metformin HCl [Metformin HCl ER] 2,000 mg PO DAILY 03/26/17 Aspirin Chewable [Aspirin Chewable*] 81 mg PO DAILY 12/30/18 Cilostazol 200 mg PO DAILY 12/30/18 Insulin Aspart [Novolog] 30 units SQ TID 02/23/19 Insulin Glargine Human [Lantus*] 80 units SQ BID 02/23/19 Losartan/Hydrochlorothiazide [Losartan-Hctz 100-25 mg Tab] 25 mg PO DAILY Testosterone Cypionate [Testone Cik] 200 mg IM SEECOM 02/23/19 - Past Medical/Surgical History Diabetic: Yes -: Hypertension -: Diabetes -: Hypothyroidism -: Thyroid disease -: Craniotomy 2012 - Family History Mother -: Diabetes Father -: Diabetes - Social History Smoking Status: Former smoker Alcohol use: No Review of Systems Other: General: No fever, no malaise, no unintentional weight loss. Eyes: No eye discharge, CVS: No chest pain, no palpitation, no lightheadedness. GI: No abdominal pain, no nausea no vomit, no constipation, no diarrhea. Genitourinary: No dysuria, no urinary frequency, no incontinence, no hematuria. Musculoskeletal: No joint pains, or joint swelling, no gait instability. Neurology: No headache, no asymmetric, weakness, no problem with swallowing. Except last documented, all other systems reviewed and negative. Physical Examination - Physical Exam General: Alert, Oriented x3, Mild distress HEENT: Atraumatic, Normocephalic, PERRLA, EOMI Neck: Supple, JVD not distended, No Thyromegaly Respiratory: Clear to auscultation bilaterally, Diminished Cardiovascular: Edema (1+ bilateral lower extremity pitting edema) Capillary refill: <2 Seconds Gastrointestinal: Normal bowel sounds, Soft and benign Musculoskeletal: No erythema, No tenderness Integumentary: Other (Bilateral lower extremity venostasis dermatitis) Neurological: Normal gait, Normal strength at 5/5 x4 extr, Cranial nerves 3-12 intact Lymphatics: Other (bilateral lower extremity lymphedema) - Studies Laboratory Data (last 24 hrs) 02/22/19 21:33: Phosphorus Cancelled 02/22/19 20:00: PT 14.4 H, INR 1.23 02/22/19 20:00: WBC 11.8 H, Hgb 11.6 L, Hct 35.1 L, Plt Count 311 02/22/19 20:00: Sodium 139, Potassium 3.0 L, BUN 11, Creatinine 0.72, Glucose 219 H, Phosphorus 3.0, Magnesium 1.9, Total Bilirubin 0.6, AST 89 H, ALT 34, Alkaline Phosphatase 171 H, Lipase 95 02/22/19 19:43: Lipase Cancelled Microbiology Data (last 24 hrs): 02/22/19 19:59 Nasopharnyx Influenza Type A Antigen Screen - Final 02/22/19 19:59 Nasopharnyx Influenza Type B Antigen Screen - Final Assessment and Plan - Problems (Diagnosis) (1) Acute bronchitis due to infection Current Visit: Yes Status: Acute (2) Hypertension Current Visit: No Status: Chronic (3) Diabetes mellitus type 2 in obese Current Visit: Yes Status: Chronic (4) Hypothyroidism Current Visit: Yes Status: Chronic Qualifiers: Hypothyroidism type: acquired Qualified Code(s): E03.9 - Hypothyroidism, unspecified - Plan Placed under observation on the general medical floor. Start IV Levaquin Schedule bronchodilators. Oxygen therapy as needed CPAP during sleep. Trend troponin. Trial of IV Lasix Echocardiogram requested. Discharge Plan: Home - Advance Directives Does patient have a Living Will: No Does patient have a Durable POA for Healthcare: No - Code Status/Comfort Care Code Status Assessed: Yes Code Status: Full Code Time Spent Managing Pts Care (In Minutes): 67
[2019-02-23] MEDS ORDERED: FUROSEMIDE 40 MG/4 ML VIAL IV ONE (01:08)
[2019-02-23 01:55] LABS: Urine Bacteria <20 /HPF (NONE SEEN); Urine Culture Reflex Order NOT NEEDED; Urine Mucus LIGHT /HPF (NONE SEEN); Urine RBC NONE SEEN /HPF (NONE SEEN)
[2019-02-23 02:00] LABS: Urine Blood NEGATIVE (NEG); Urine Glucose NEGATIVE (NEG); Urine Protein 1+ (NEG); Urine Specific Gravity 1.025 (1.005-1.030)
[2019-02-23 02:18] VITALS: BMI 66.0
[2019-02-23] MEDS: Levofloxacin 750mg IV 750 MG/150 ML BAG IV SCH (02:30)
[2019-02-23 06:09] LABS: NT PRO-BNP 86 pg/mL (<125); Thyroid Stimulating Hormone 0.999 uIU/mL (0.360-3.740); Troponin I < 0.02 ng/mL (0.0-0.045)
--- NOTE | 2019-02-23 07:26 | EKG ---
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
[2019-02-23] MEDS ORDERED: INSULIN -REGULAR HUMAN 50 UNIT/0.5 ML ML SQ SCH (07:30)
[2019-02-23] MEDS: ENOXAPARIN 40 MG/0.4 ML SQ SCH (08:59)
--- NOTE | 2019-02-23 09:32 | RAD REPORT ---
EXAM DESCRIPTION: CT CHEST ANGIOGRAPHY WITH IV CONTRAST CLINICAL HISTORY: Shortness of breath. COMPARISON: None. TECHNIQUE: CT angiogram of the chest with IV contrast. 3-D MIP images were obtained in coronal and s agittal reconstructions. This exam was performed according to our departmental dose-optimization prog wily, which includes automated exposure control, adjustment of the mA and/or kV according to patient s ize and/or use of iterative reconstruction technique. FINDINGS: No filling defects are identified in the pulmonary trunk, main left and right pulmonary ar teries, or the segmental branches. The thyroid gland is normal. No mediastinal or hilar adenopathy. The heart size is normal without per icardial effusion. The thoracic aorta is normal caliber. No consolidation, pleural effusion, or pneum othorax is identified. The visualized upper abdomen demonstrates no acute findings. No acute osseous findings are seen. IMPRESSION: No acute pulmonary embolism. Electronically signed by: Anand Marcano MD 02/22/2019 9:54 PM CDT Due to temporary technical issues with the PACS/Fluency reporting system, reports are being signed by the in house radiologist as a courtesy to ensure prompt reporting. The interpreting radiologist is f ully responsible for the content of the report.
[2019-02-23] MEDS ORDERED: POTASSIUM 25 MEQ EFFERV TAB PO ONE (09:37)
[2019-02-23] MEDS: INSULIN LISPRO 100 UNIT/1 ML SQ SCH ×2 (13:39→19:58)
--- NOTE | 2019-02-23 16:32 | ECHO ---
HEIGHT: 5 ft 8 in WEIGHT: 434 lb 6.4 oz DATE OF STUDY: 02/23/[address]: eddie bahena 2-DIMENSIONAL: YES M.MODE: YES DOPPLER: YES COLOR FLOW: YES TDS: YES PORTABLE: YES DEFINITY: BUBBLE STUDY: DIAGNOSIS: SOB CARDIAC HISTORY: CATHERIZATION: NO SURGERY: NO PROSTHETIC VALVE: NO PACEMAKER: NO MEASUREMENTS (cm) DIASTOLIC (NORMALS) SYSTOLIC (NORMALS) IVSd 1.1 (0.6-1.2) LA Diam 4.1 (1.9-4.0) LVEF 74% LVIDd 5.7 (3.5-5.7) LVIDs 3.2 (2.0-3.5) %FS 43% LVPWd 1.2 (0.6-1.2) Ao Diam 3.1 (2.0-3.7) 2 DIMENSIONAL ASSESSMENT: RIGHT ATRIUM: NORMAL LEFT ATRIUM: NORMAL RIGHT VENTRICLE: NORMAL LEFT VENTRICLE: NORMAL TRICUSPID VALVE: NORMAL MITRAL VALVE: NORMAL PULMONIC VALVE: NORMAL AORTIC VALVE: NORMAL PERICARDIAL EFFUSION: NONE AORTIC ROOT: NORMAL LEFT VENTRICULAR WALL MOTION: NORMAL DOPPLER/COLOR FLOW: NORMAL COMMENTS: NORMAL TWO DIMENSIONAL ECHOCARDIOGRAM WITH DOPPLER. NO WALL MOTION ABNORMALITY. NO EFFUSION. TECHNOLOGIST: TRAVIS SMITH
[2019-02-23] MEDS ORDERED: POTASSIUM CL SA 10 MEQ TAB PO ONE (17:32)
--- NOTE | 2019-02-23 17:38 | PN ---
Date of Progress Note: 02/23/2019 Subjective: Patient is seen and examined. Chart reviewed and case discussed with RN. The patient i s still having some shortness of breath with exertion, however, saturating well on room air. Medications list reviewed. Physical Examination: Vital Signs: T-max is 100.3, heart rate 102, blood pressure 119/67, respirations 20, O2 96% on CPAP. General: Awake, alert, oriented x3, in some mild distress, morbidly obese male. Heart: S1, S2. Sinus tachycardia. Peripheral pulses present. Respiratory: Diminished breath sounds. No wheezing. No stridor. Gastrointestinal: Abdomen is soft, nontender, nondistended. Positive bowel sounds. No guarding or rigidity. Extremities: No clubbing, cyanosis, or edema. Neuro: Cranial nerves 2 through 12 intact grossly. No focal neurological deficits. Speech is zelda l. Laboratory Data: Troponin less than 0.02. BNP 86. TSH 0.999. Lactate 1.6. Assessment And Plan: 1.Acute bronchitis due to infection. 2.Essential hypertension. 3.Diabetes mellitus type 2 with hyperglycemia. We will continue with sliding scale insulin and mervat tor blood glucose levels. 4.Hypothyroidism. TSH is normal. 5.Morbid obesity. BMI is 66. Plan: We will continue with IV antibiotics. Repeat chest x-ray in a.m. Continue CPAP at night. We will order physical therapy and room air saturation with exertion. We will start on incentive julian metry for right atelectasis. Follow up on echocardiogram. The patient does not have PE, not hypoxic at th is time, likely discharge in a.m. /DEREK Voice ID: [id number] Report ID: [id number]
[2019-02-23] MEDS: INSULIN GLARGINE 100 UNITS/ML SQ SCH (19:58)
[2019-02-23] MEDS ORDERED: ATORVASTATIN 10 MG TAB PO SCH (21:00)
[2019-02-24] MEDS: Levofloxacin 750mg IV 750 MG/150 ML BAG IV SCH (00:23)
[2019-02-24 04:40] LABS: Basophils % 0.6 % (0-1.3); Hematocrit 33.5 % (39.6-49.0); MPV 7.9 fL (7.6-11.3); RBC Red Blood Cell Count 3.74 M/uL (4.33-5.43)
[2019-02-24 05:09] LABS: BUN Blood Urea Nitrogen 10 mg/dL (7-18); Bicarbonate 31 mmol/L (21-32); Glucose Level 113 mg/dL (74-106); HDL Cholesterol 30 mg/dL (40-60); LDL Cholesterol, Calculated 55 (<130); Potassium 3.4 mmol/L (3.5-5.1); Sodium Level 138 mmol/L (136-145)
[2019-02-24] MEDS ORDERED: POTASSIUM CL SA 10 MEQ TAB PO ONE (05:10)
[2019-02-24] MEDS ORDERED: LEVOTHYROXINE SOD 0.1 MG TAB PO SCH (06:00)
[2019-02-24] MEDS: INSULIN GLARGINE 100 UNITS/ML SQ SCH (07:47)
[2019-02-24] MEDS: INSULIN LISPRO 100 UNIT/1 ML SQ SCH (07:48)
[2019-02-24] MEDS: ENOXAPARIN 40 MG/0.4 ML SQ SCH (07:48)
[2019-02-24] MEDS ORDERED: ASPIRIN 81 MG CHEWABLE TABLET PO SCH (09:00)
[2019-02-24] MEDS ORDERED: LOSARTAN/HCTZ 50-12.5 PO SCH (09:00)
[2019-02-24] MEDS ORDERED: CILOSTAZOL 100 MG TAB PO SCH (09:00)
[2019-02-24 09:37] VITALS: O2SAT 95
[2019-02-24 12:03] VITALS: BP 142/65; TEMP 97.7
--- NOTE | 2019-02-25 01:43 | DS ---
Date of Discharge: 02/24/2019 Consultants: None. Admitting Diagnoses: 1.Acute bronchitis due to infection. 2.Essential hypertension. 3.Diabetes mellitus type 2 with hyperglycemia insulin requiring. 4.Morbid obesity. 5.Hypothyroidism. 6.Hypokalemia. Discharge Diagnoses: 1.Acute bronchitis due to infection, resolving. 2.Essential hypertension, stable. 3.Diabetes mellitus type 2 with hyperglycemia with long-term use of insulin, stable. 4.Hypothyroidism, stable. 5.Morbid obesity, body mass index is 66. 6.Obstructive sleep apnea, on CPAP. Hospital Course: Patient is a 58-year-old male with past medical history of obesity, sleep apnea, di abetes on insulin, chronic lymphedema, hypertension, comes in with shortness of breath. Patient was diagnosed with acute bronchitis. Patient's imaging studies showed some atelectasis. CT angio was ne gative for pulmonary embolism. Patient's condition improved with IV antibiotics. His WBC count norm alized. His troponin levels were negative. His electrolytes improved. His cough and shortness of b reath also improved. He was afebrile. After treatment his blood cultures did not show any growth. His influenza screen was negative. Urine culture grew out mixed joseph. Echocardiogram showed EF of 74% with no wall motion abnormality or effusion. Patient was feeling better, he was able to ambulate without getting short of breath. There is no hypoxia. Patient was then discharged home in a stable condition. Activity: As tolerated. Medications: As per medication reconciliation list. Followup: Follow up with primary care physician in 2-3 days. Establish care with pack worker, Dr. Nolasco in 2 weeks to have repeat sleep study and to have CPAP updated. Return to ER for worsening condition. Diet: Diabetic. Physical Examination: General: Awake, alert, and oriented x3. Morbidly obese male. CV: S1-S2. Respiratory: Moving air well bilaterally. Gastrointestinal: Abdomen is soft, nontender, nondistended. Positive bowel sounds. Extremities: No clubbing, cyanosis, or edema. Neurologic: Nonfocal. SA/MODL Voice ID: [id number] Report ID: [id number]
== END 2019-02-24 11:59 | disposition home or self-care (01) ==
LOC: ER 18:31 → ERHOLD 02-23 00:57 → INTOOBSV 02-23 00:57 → 4TH 02-23 01:19
PROVIDERS: ADMIT Internal Medicine; ATTEND Family Medicine
DX: J20.9 Acute bronchitis, unspecified (principal); E66.01 Morbid (severe) obesity due to excess calories; E11.65 Type 2 diabetes mellitus with hyperglycemia; I10 Essential (primary) hypertension; G47.33 Obstructive sleep apnea (adult) (pediatric); E03.9 Hypothyroidism, unspecified; E87.6 Hypokalemia; Z79.4 Long term (current) use of insulin; Z68.44 Body mass index [BMI] 60.0-69.9, adult
CPT/HCPCS: 96365; 96361; 93005; 93306; 87040 ×2; 87088; 85025 ×2; 87086; 80048 ×2; 36415 ×2; 83735; 84100; 84132; 85610; 80061; 82962 ×6; 80076; 83605; 84443; 84484 ×4; 83690; 84145; 83880 ×2; 87804 ×2; 71275; 71046; 93970; 82805; 94760 ×3; 96375; 99285; 96366; Q9967; J1940; J0456; J1650 ×2; J0696; J7030; G0378 ×2; 81003; 81015

== ENCOUNTER 2019-04-27 08:40 | Emergency (ER) | payer BC ==
[2019-04-27] MEDS ORDERED: LEVALBUTEROL 1.25 MG/3 ML NEB ONE (09:08)
[2019-04-27 09:23] LABS: Absolute Lymphocytes (CBC) 2.5 K/uL (0.7-4.9); Basophils % 0.6 % (0-1.3); Hematocrit 29.3 % (39.6-49.0); Lymphocytes % 19.5 % (15.3-44.8); MPV 8.5 fL (7.6-11.3); RBC Red Blood Cell Count 3.23 M/uL (4.33-5.43)
[2019-04-27 09:46] LABS: ALT/SGPT 47 U/L (12-78); AST/SGOT 151 U/L (15-37); Albumin 2.4 g/dL (3.4-5.0); Alkaline Phosphatase 367 U/L (45-117); BUN Blood Urea Nitrogen 9 mg/dL (7-18); Bicarbonate 26 mmol/L (21-32); Bilirubin Direct 1.6 mg/dL (0-0.2); Bilirubin Total 2.7 mg/dL (0.2-1.0); Glucose Level 85 mg/dL (74-106); NT PRO-BNP 208 pg/mL (<125); Sodium Level 138 mmol/L (136-145); Troponin (Emerg Dept Use Only) < 0.02 ng/mL (0.0-0.045)
--- NOTE | 2019-04-27 10:42 | RAD REPORT ---
EXAM DESCRIPTION: RAD - Chest Single View - 04/27/2019 9:27 am CLINICAL HISTORY: Shortness of breath COMPARISON: February 2019 TECHNIQUE: AP portable chest image was obtained 0924 hours . FINDINGS: Lung volumes are very low. There is respiratory motion degradation as well. Portable techn ique and large body habitus further compromise the examination. Right base infiltrate and/ or atelectasis present. Left lung base is probably clear. Upper lung field s grossly clear. Heart and vasculature are normal. No measurable pleural effusion and no pneumothorax . No acute bony abnormality seen. No acute aortic findings suspected. IMPRESSION: Significantly limited portable chest showing infiltrate and/ or atelectasis in the right base.
--- NOTE | 2019-04-27 11:25 | RAD REPORT ---
EXAM DESCRIPTION: CT - Abdomen Pelvis W Contrast - 04/27/2019 10:51 am CLINICAL HISTORY: Abdominal pain abnormal liver function test enzymes COMPARISON: none. TECHNIQUE: Computed axial tomography of the abdomen pelvis was obtained. 100 cc Isovue-300 was admin istered intravenously. Oral contrast was not requested which limits evaluation of bowel. All CT scans are performed using dose optimization technique as appropriate and may include automated exposure control or mA/KV adjustment according to patient size. FINDINGS: Examination is suboptimal secondary to body habitus and poor opacification of the vessels . The liver has a heterogeneous density. It contains fatty infiltration. The liver is enlarged Gallstones. Largest measures 4.5 centimeters Spleen, adrenals and kidneys appear grossly normal. 3 centimeter soft tissue structure abuts the pancreatic neck. A 3 centimeter soft tissue structure ab uts the caudate lobe and celiac artery probably lymphadenopathy. There is fullness within the region of the pancreatic uncinate process. An umbilical hernia contains fat. The sac measures 6.7 centimeters Small right pleural effusion with right basilar atelectasis IMPRESSION: Hepatomegaly. Fatty infiltration. The density is heterogeneous which may indicate inflam mation. A discrete mass is not seen although evaluation is limited secondary to the heterogeneous den sity and fatty infiltration. Cholelithiasis 3 centimeter mass abuts the pancreatic body which may represent lymphadenopathy . 3 centimeter lymph node suspected in the region of the celiac axis Fullness within the region of pancreatic uncinate process suspicious for a mass
--- NOTE | 2019-04-27 11:26 | RAD REPORT ---
EXAM DESCRIPTION: US - Abdomen Exam Limited - 04/27/2019 10:42 am CLINICAL HISTORY: abnormal liver enzymes COMPARISON: None. FINDINGS: Cholelithiasis. The gallbladder wall is poorly visualized. . The biliary tree is normal caliber. Increased and heterogeneous hepatic echotexture IMPRESSION: Cholelithiasis Increased and heterogeneous hepatic echotexture may indicate fatty infiltration and inflammation. 2.5 centimeter hypoechoic area within the left lobe may indicate focal fatty sparing, mass or inflamm ation
--- NOTE | 2019-04-27 12:09 | EKG ---
Test Date: 2019-04-27 Test Time: 09:13:39 Job Boss: MIGUE MEASUREMENT RESULTS: Intervals: Rate: 85 HI: 154 QRSD: 100 QT: 400 QTc: 476 Hanna: P: 58 HI: 154 QRS: -57 T: 34 INTERPRETIVE STATEMENTS: Sinus rhythm with marked sinus arrhythmia Left anterior fascicular block Abnormal ECG Compared to ECG 02/22/2019 19:44:18 No significant changes Electronically Signed On 04-27-19 12:08:46 CDT by Juan Hauser
[2019-04-27] MEDS ORDERED: CEFTRIAXONE/SWI 1gm 1 GM/10 ML SYR ONE (12:36)
[2019-04-27] MEDS ORDERED: AZITHROMYCIN IV 500 MG in NA CHLORIDE 0.9% 250 ML IVPB ONE (12:45)
--- NOTE | 2019-04-27 13:00 | EDPHYS ---
Physician Documentation [facility] Name: Luis Alberto Oliveira Age: 59 yrs Sex: Male : 1960 Arrival Date: 04/27/2019 Time: 08:43 Bed 2 Private MD: ED Physician Mono Alvarez HPI: 04/27 09:27 This 59 yrs old Male presents to ER via Wheelchair with complaints of rn Shortness Of Breath, Swelling of Lower Extremity. 09:27 The patient has shortness of breath at rest, with light activity. Onset: The rn symptoms/episode began/occurred 2 month(s) ago. Duration: The symptoms are continuous. The patient's shortness of breath is aggravated by exertion, light activity, supine position, talking, walking. Severity of symptoms: At their worst the symptoms were moderate in the emergency department the symptoms are unchanged. The patient has experienced similar episodes in the past. The patient has been recently been admitted at [facility]. reports since admission 2 months ago, continued sob and progressive swelling of body, no fever or productive cough, told last time heart and lungs ok, recommended cpap which patient has not received, no vomiting/diarrhea. reports increased TORRES. . Historical: - Allergies: 09:05 No Known Allergies; sv - PMHx: 09:00 Diabetes - IDDM; Hyperlipidemia; Hypertension; Hypothyroidism; Sleep Apnea; ss - PSHx: 09:00 Craniotomy; ss - Ebola Screening: : Patient denies exposure to infectious person Patient denies travel to an Ebola-affected area in the 21 days before illness onset. - Family history:: not pertinent. - Social history:: Smoking status: Patient/guardian denies using tobacco. - Hospitalizations: : The patient was recently seen at [facility]. ROS: 09:27 Constitutional: Negative for fever, chills, and weight loss, Eyes: Negative for injury, rn pain, redness, and discharge, Neck: Negative for injury, pain, and swelling, Cardiovascular: Negative for chest pain, palpitations, + edema Respiratory: + sob and non-productive cough Abdomen/GI: Negative for abdominal pain, nausea, vomiting, diarrhea, and constipation, : Negative for injury, bleeding, discharge, and swelling, MS/Extremity: Negative for injury and deformity, Skin: Negative for injury, rash, and discoloration, Neuro: Negative for headache, numbness, tingling, and seizure. Exam: 09:27 Constitutional: Morbidly obese male, with mild to moderate tachypnea Head/Face: rn Normocephalic, atraumatic. Eyes: Pupils equal round and reactive to light, extra-ocular motions intact. Lids and lashes normal. Conjunctiva and sclera are non-icteric and not injected. Cornea within normal limits. Periorbital areas with no swelling, redness, or edema. ENT: dry MM, no swelling, no stridor Cardiovascular: Regular rate and rhythm. No pulse deficits. Respiratory: Diminished breath sounds at bases, + mild to moderate tachypnea, no wheezing, equal bilaterally. Abdomen/GI: soft, non-tender Male : Inverted penis without scrotal swelling or tenderness MS/ Extremity: Pulses equal, no cyanosis. Neurovascular intact. 2+ pitting edema bilateral lower ext that passes knees proximally. Neuro: Awake and alert, GCS 15, oriented to person, place, time, and situation. 09:39 ECG was reviewed by the Attending Physician. rn Vital Signs: 08:57 BP 110 / 58; Pulse 95; Resp 25; Temp 98.3(TE); Pulse Ox 96% on R/A; Weight 195.04 kg; ss Height 5 ft. 7 in. (170.18 cm); 09:58 BP 122 / 70; Pulse 106; Resp 24 S; Pulse Ox 92% on R/A; jl7 11:00 BP 116 / 59; Pulse 109; Resp 22; Pulse Ox 96% ; sv 12:00 BP 106 / 54; Pulse 104; Resp 20; Pulse Ox 95% ; sv 12:51 BP 106 / 54; Pulse 97; Resp 21 S; Pulse Ox 96% on R/A; jl7 14:00 BP 105 / 62; Pulse 97; Resp 16 S; Pulse Ox 98% on R/A; jl7 15:00 BP 96 / 54; Pulse 95; Resp 16 S; Pulse Ox 96% on R/A; jl7 08:57 Body Mass Index 67.35 (195.04 kg, 170.18 cm) ss MDM: 08:44 Patient medically screened. rn 12:55 Differential diagnosis: Anemia Bronchitis pneumonia, Pneumothorax pulmonary edema, rn mechanical problem, pneumonia, effusion. Data reviewed: vital signs, nurses notes, old medical records, lab test result(s), EKG, radiologic studies, CT scan, plain films, ultrasound, and as a result, I will admit patient. Counseling: I had a detailed discussion with the patient and/or guardian regarding: the historical points, exam findings, and any diagnostic results supporting the discharge/admit diagnosis, lab results, radiology results, the need for further work-up and treatment in the hospital. Response to treatment: the patient's symptoms have mildly improved after treatment, and as a result, I will admit patient. Admission orders: after a detailed discussion of the patient's condition and case, the admit orders are written by me. ED course: Admitted to Dr. Hastings \T\ 1300, for sob, possible pneumonia. A lot of difficulty is from body habitus, but also worsening LFTs due likely to fatty liver. Also ct shows nonspecific fullness of pancreas with surrounding lymphadenopathy.. 04/27 09:04 Order name: CBC with Diff; Complete Time: 10:09 rn 04/27 09:04 Order name: Basic Metabolic Panel; Complete Time: 10:09 rn 04/27 09:04 Order name: N-Terminal Pro-brain Natriuretic Peptide; Complete Time: 10:09 rn 04/27 09:04 Order name: Troponin (emerg Dept Use Only); Complete Time: 10:09 rn 04/27 09:04 Order name: Blood Culture Adult (2) rn 04/27 09:04 Order name: Procalcitonin; Complete Time: 10:09 rn 04/27 09:04 Order name: LFT's; Complete Time: 10:09 rn 04/27 09:14 Order name: Chest Single View XRAY; Complete Time: 11:58 ss 04/27 10:13 Order name: US Abdomen Limited; Complete Time: 11:58 bd 04/27 10:13 Order name: CT Abd/Pelvis - IV Contrast Only; Complete Time: 11:58 bd 04/27 14:01 Order name: Lipase; Complete Time: 15:51 rn 04/27 09:04 Order name: IV Start; Complete Time: 09:12 rn 04/27 09:04 Order name: EKG; Complete Time: 09:05 rn 04/27 09:04 Order name: EKG - Nurse/Tech; Complete Time: 09:12 rn EC:39 Rate is 85 beats/min. Rhythm is irregular. Left axis deviation noted. QRS is positive rn in lead I and negative in lead aVF. VA interval is normal. QRS interval is normal. QT interval is normal. No Q waves. T waves are Normal. No ST changes noted. Clinical impression: NSR w/ Non-specific ST/T Changes. Interpreted by me. Reviewed by me. Administered Medications: 09:11 Drug: Xopenex 1.25 mg Route: Inhalation; sv 09:30 Follow up: Response: No adverse reaction jl7 12:42 Drug: Rocephin 1 grams Route: IV; Rate: calculated rate; Site: right antecubital; jl7 12:45 Follow up: Response: No adverse reaction; IV Status: Completed infusion jl7 12:44 Not Given (wrong pharmacy order): Rocephin - (cefTRIAXone) 1 grams IVPB once over 30 jl7 mins; (mix in 50 mL NS) 13:17 Drug: Zithromax 500 mg Route: IVPB; Infused Over: 1 hrs; Site: right antecubital; jl7 14:22 Follow up: Response: No adverse reaction; IV Status: Completed infusion jl7 Disposition: 04/27/19 15:52 Transfer ordered to [facility]. Diagnosis are Pneumonia, Dyspnea, unspecified, Abnormal results of liver function studies, Pancreatic mass. - Reason for transfer: Higher level of care. - Accepting physician is Dr. Parrish. - Condition is Stable. - Problem is new. - Symptoms have improved. Signatures: Dispatcher [employer] EDOH Vanessa Li RN RN Mono Alvarez MD MD rn Smirch, Shelby, RN RN Helen Galvan RN RN jl7 Corrections: (The following items were deleted from the chart) 15:51 12:59 Hospitalization Ordered by Yvonne Hastings MD for Inpatient Admission. Preliminary rn diagnosis is Dyspnea, unspecified; Right lower Lobe Pneumonia; Cholelithiasis; Lymphedema, not elsewhere classified. Bed requested for Telemetry/MedSurg (Inpatient). Status is Inpatient Admission. Condition is Fair. Problem is new. Symptoms have improved. UTI on Admission? No. rn 16:02 15:52 04/27/2019 15:52 Transfer ordered to [facility]. Diagnosis is jl7 Pneumonia; Dyspnea, unspecified; Abnormal results of liver function studies; Pancreatic mass. Reason for transfer: Higher level of care. Accepting physician is Dr. Parrish. Condition is Stable. Problem is new. Symptoms have improved. rn
--- NOTE | 2019-04-27 13:00 | ER ---
Nurse's Notes [facility] Name: Luis Alberto Oliveira Age: 59 yrs Sex: Male : 1960 Arrival Date: 04/27/2019 Time: 08:43 Bed 2 Private MD: Diagnosis: Pneumonia;Dyspnea, unspecified;Abnormal results of liver function studies;Pancreatic mass Presentation: 04/27 08:58 Presenting complaint: states: Increased shortness of breath since last admission ss to hospital in February 2019. also reports that swelling seems to have gotten worse in bilateral thighs and abdomen. Transition of care: patient was not received from another setting of care. Onset of symptoms was February 2019. Risk Assessment: Do you want to hurt yourself or someone else? Patient reports no desire to harm self or others. Initial Sepsis Screen: Does the patient meet any 2 criteria? No. Patient's initial sepsis screen is negative. Does the patient have a suspected source of infection? No. Patient's initial sepsis screen is negative. Care prior to arrival: None. 08:58 Method Of Arrival: Wheelchair ss 08:58 Acuity: CATRACHITO 3 ss Historical: - Allergies: 09:05 No Known Allergies; sv - PMHx: 09:00 Diabetes - IDDM; Hyperlipidemia; Hypertension; Hypothyroidism; Sleep Apnea; ss - PSHx: 09:00 Craniotomy; ss - Ebola Screening: : Patient denies exposure to infectious person Patient denies travel to an Ebola-affected area in the 21 days before illness onset. - Family history:: not pertinent. - Social history:: Smoking status: Patient/guardian denies using tobacco. - Hospitalizations: : The patient was recently seen at [facility]. Screenin:05 Abuse screen: Denies threats or abuse. Denies injuries from another. Nutritional sv screening: No deficits noted. Tuberculosis screening: No symptoms or risk factors identified. Fall Risk None identified. Assessment: 09:17 General: Appears uncomfortable, obese, well developed, Behavior is cooperative. Pain: jl7 Complains of pain in back Pain currently is 6 out of 10 on a pain scale. Pain began years ago. Is continuous. Neuro: Level of Consciousness is awake, alert, obeys commands, Oriented to person, place, time, situation. Cardiovascular: Heart tones S1 S2 present Patient's skin is warm and dry. Edema is 4+ to bilateral lower extrmities Rhythm is sinus rhythm. Respiratory: Airway is patent Respiratory effort is even, labored, Respiratory pattern is symmetrical, tachypnea Breath sounds are clear bilaterally. GI: Abdomen is round non-distended, Patient currently denies diarrhea, nausea, vomiting. : No signs and/or symptoms were reported regarding the genitourinary system. EENT: No signs and/or symptoms were reported regarding the EENT system. Derm: Skin is pink, warm \T\ dry. 09:58 Reassessment: Assisted pt to bathroom via wheelchair, pt reports being more comfortable jl7 sitting in the wheelchair. 11:00 Reassessment: Patient appears in no apparent distress at this time. No changes from [facility] previously documented assessment. Patient and/or family updated on plan of care and expected duration. Pain level reassessed. Patient is alert, oriented x 3, equal unlabored respirations, skin warm/dry/pink. 12:00 Reassessment: Patient appears in no apparent distress at this time. Patient and/or jl7 family updated on plan of care and expected duration. Pain level reassessed. Patient is alert, oriented x 3, equal unlabored respirations, skin warm/dry/pink. Patient states feeling better. Patient states symptoms have improved. 13:00 Reassessment: Patient appears in no apparent distress at this time. Patient and/or jl7 family updated on plan of care and expected duration. Pain level reassessed. Patient is alert, oriented x 3, equal unlabored respirations, skin warm/dry/pink. 14:00 Reassessment: Patient appears in no apparent distress at this time. No changes from [facility] previously documented assessment. Patient and/or family updated on plan of care and expected duration. Pain level reassessed. Patient is alert, oriented x 3, equal unlabored respirations, skin warm/dry/pink. 15:32 Reassessment: EMS at bedside to transfer pt. [facility] Vital Signs: 08:57 BP 110 / 58; Pulse 95; Resp 25; Temp 98.3(TE); Pulse Ox 96% on R/A; Weight 195.04 kg; ss Height 5 ft. 7 in. (170.18 cm); 09:58 BP 122 / 70; Pulse 106; Resp 24 S; Pulse Ox 92% on R/A; jl7 11:00 BP 116 / 59; Pulse 109; Resp 22; Pulse Ox 96% ; sv 12:00 BP 106 / 54; Pulse 104; Resp 20; Pulse Ox 95% ; sv 12:51 BP 106 / 54; Pulse 97; Resp 21 S; Pulse Ox 96% on R/A; jl7 14:00 BP 105 / 62; Pulse 97; Resp 16 S; Pulse Ox 98% on R/A; jl7 15:00 BP 96 / 54; Pulse 95; Resp 16 S; Pulse Ox 96% on R/A; jl7 08:57 Body Mass Index 67.35 (195.04 kg, 170.18 cm) ED Course: 08:43 Patient arrived in ED. mr 08:44 Mono Alvarez MD is Attending Physician. rn 08:44 Yudith Harris, OCHOA is Primary Nurse. 08:57 Arm band placed on right wrist. 08:58 Triage completed. 09:00 site monitor on. Pulse ox on. NIBP on. jl7 09:00 Inserted saline lock: 20 gauge in right antecubital area, using aseptic technique. jl7 Blood collected. 09:00 Initial lab(s) drawn, by ny, sent to lab. First set of blood cultures drawn by ny. jl7 09:05 Patient has correct armband on for positive identification. Bed in low position. Call light in reach. Adult w/ patient. Door closed. Head of bed elevated. 09:15 Second set of blood cultures drawn by ny. jl7 09:27 Chest Single View XRAY In Process Unspecified. EDMS 09:40 Helen Galvan, RN is Primary Nurse. jl7 10:41 US Abdomen Limited In Process Unspecified. EDMS 10:52 CT Abd/Pelvis - IV Contrast Only In Process Unspecified. EDMS 12:58 Yvonne Hastings MD is Hospitalizing Provider. rn 15:31 No provider procedures requiring assistance completed. Patient transferred, IV remains jl7 in place. intact, No redness/swelling at site. Administered Medications: 09:11 Drug: Xopenex 1.25 mg Route: Inhalation; sv 09:30 Follow up: Response: No adverse reaction jl7 12:42 Drug: Rocephin 1 grams Route: IV; Rate: calculated rate; Site: right antecubital; jl7 12:45 Follow up: Response: No adverse reaction; IV Status: Completed infusion jl7 12:44 Not Given (wrong pharmacy order): Rocephin - (cefTRIAXone) 1 grams IVPB once over 30 jl7 mins; (mix in 50 mL NS) 13:17 Drug: Zithromax 500 mg Route: IVPB; Infused Over: 1 hrs; Site: right antecubital; jl7 14:22 Follow up: Response: No adverse reaction; IV Status: Completed infusion jl7 Outcome: 12:59 Decision to Hospitalize by Provider. rn 15:31 Transferred by ground EMS to [facility], Transfer form completed. jl7 15:31 Condition: stable 15:31 Discharge instructions given to patient, family, Instructed on the need for transfer, Demonstrated understanding of instructions. 15:52 ER care complete, transfer ordered by MD. rn 16:02 Patient left the ED. jl7 Signatures: Dispatcher [employer] EDVanessa Earl RN RN Sweetie Mejias Roman, MD MD rn Smirch, Shelby, RN RN ss Hall, Patricia, RN RN ph Leal, Jahala, RN RN jl7 Corrections: (The following items were deleted from the chart) 08:57 08:57 BP 110 / 58; Pulse 95bpm; Resp 25bpm; Pulse Ox 96% RA; Temp 98.3F Temporal; ss 195.04 kg; Height 5 ft. 7 in.; BMI: 67.3; Pain 5/10; ss
[2019-04-27 16:17] VITALS: TEMP 98.3
[2019-04-27 16:24] VITALS: BP 96/54; O2SAT 96
== END 2019-04-27 16:02 | disposition short-term general hospital (02) ==
LOC: ER 08:40
DX: J18.9 Pneumonia, unspecified organism (principal); K86.89 Other specified diseases of pancreas; R94.5 Abnormal results of liver function studies; I10 Essential (primary) hypertension
CPT/HCPCS: 93005; 87040 ×2; 85025; 80048; 36415; 80076; 84484; 83690; 84145; 83880; 74177; 71045; 76705; Q9967; J0456; J0696; J7030; 96365; 96375; 99285